=== PATIENT | female | born 1930 | race Caucasian/White ===

== ENCOUNTER 2017-07-14 16:42 | Inpatient (IN) | payer MEDICARE, MEDICAID ==
[~2017-07-14 16:42] MED LIST: ASPIR 8181 MG PO; AUGMENTIN 250250 MG PO; DAILY MULTIPLE1 EAC1 PO; DUONEB DPS3 ML IH; EFFEXOR XR75 MG PO; ELIQUIS2.5 MG PO; FOSAMAX70 MG PO; NICOTINE PATCH1 EAC4 TD; OXY IR DPS5 MG PO; REMERON DPS15 MG PO; SENOKOT DPS8.6 MG PO; TYLENOL EXTRA500 M1 PO; ZESTRIL DPS20 MG PO; ZOCOR DPS20 MG PO
[2017-07-18] MEDS ORDERED: PROTONIX40 MG PO (18:25)
[2017-07-18] MEDS ORDERED: LASIX DPS40 MG PO (18:27)
[2017-07-18] MEDS ORDERED: ACIDOPHILUS1 EAC4 PO (18:27)
[2017-07-18] MEDS ORDERED: TYLENOL DPS325 MG PO (18:28)
[2017-07-18] MEDS ORDERED: MICRO-K DPS10 MEQ PO (18:28)
== END 2017-07-17 15:39 | DRG 378 ==
DX: K25.4 Chronic or unspecified gastric ulcer with hemorrhage (principal); D62 Acute posthemorrhagic anemia; I50.9 Heart failure, unspecified; I11.0 Hypertensive heart disease with heart failure; F03.90 Unspecified dementia, unspecified severity, without behavioral disturbance, psychotic disturbance, mood disturbance, and anxiety; N39.0 Urinary tract infection, site not specified; J44.9 Chronic obstructive pulmonary disease, unspecified; I25.10 Atherosclerotic heart disease of native coronary artery without angina pectoris; F41.9 Anxiety disorder, unspecified; F17.200 Nicotine dependence, unspecified, uncomplicated; F32.9 Major depressive disorder, single episode, unspecified; I65.29 Occlusion and stenosis of unspecified carotid artery; E53.8 Deficiency of other specified B group vitamins; M19.90 Unspecified osteoarthritis, unspecified site; M81.0 Age-related osteoporosis without current pathological fracture; Z86.711 Personal history of pulmonary embolism; Z79.01 Long term (current) use of anticoagulants; Z86.718 Personal history of other venous thrombosis and embolism; Z85.118 Personal history of other malignant neoplasm of bronchus and lung; Z85.528 Personal history of other malignant neoplasm of kidney; Z90.5 Acquired absence of kidney; Z79.82 Long term (current) use of aspirin; Z66 Do not resuscitate